=== PATIENT | male | born 1990 | race Caucasian/White ===

== ENCOUNTER 2017-09-19 04:16 | Emergency (ER) | payer SELFPAY ==
[~2017-09-19] VITALS: Ht 175.3 cm; Wt 89.9 kg
[2017-09-19 04:21] VITALS: BP 151/85
== END 2017-09-19 05:28 | disposition left against medical advice (07) ==
LOC: ED 05:22
DX: F41.9 Anxiety disorder, unspecified (principal); Z53.21 Procedure and treatment not carried out due to patient leaving prior to being seen by health care provider